=== PATIENT | male | born 1955 | race African-American/Black ===

== ENCOUNTER 2018-04-02 10:33 | Inpatient (IN) | payer OTHER ==
[2018-04-02 11:13] VITALS: BMI 18.1
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
[2018-04-02] MEDS ORDERED: ACETAMINOPHEN 325 MG TABLET (FP) PO PRN (14:44)
[2018-04-02] MEDS ORDERED: guaiFENesin/D-METHORPHAN HB 10 ML UNIT-DOSE CUPS PO PRN (14:44)
[2018-04-02] MEDS ORDERED: hydrOXYzine PAMOATE 50 MG CAPSULE (FP) PO PRN (14:44)
[2018-04-02] MEDS ORDERED: MENTHOL/PHENOL 1 EACH UD MM PRN (14:44)
[2018-04-02] MEDS ORDERED: MAGNESIUM HYDROX 2400MG/30ML ORAL SUSPENSION 30 ML CUP PO PRN (14:44)
[2018-04-02] MEDS ORDERED: LOPERAMIDE HCL 2 MG CAPSULE PO PRN (14:44)
[2018-04-02] MEDS ORDERED: MAGNESIUM CITRATE 300 ML BOTTLE PO PRN (14:44)
[2018-04-02] MEDS ORDERED: P-EPHED 60MG/TRIPROLIDI 2.5MG TABLET PO PRN (14:44)
[2018-04-02] MEDS ORDERED: IBUPROFEN 400 MG TABLET (FP) PO PRN (14:44)
[2018-04-02] MEDS ORDERED: chlordiazePOXIDE HCL 25 MG CAPSULE PO PRN (14:44)
[2018-04-02] MEDS ORDERED: MAG HYDROX/AL HYDROX/SIMETH 30 ML UNIT-DOSE CUP PO PRN (14:44)
[2018-04-02] MEDS: chlordiazePOXIDE HCL 25 MG CAPSULE PO SCH ×2 (17:40→22:07)
[2018-04-02 19:05] LABS: URINE APPEARANCE SLCLOUDY; URINE COLOR AMBER; URINE GLUCOSE (UA) NEGATIVE (NEGATIVE); URINE KETONE NEGATIVE (NEGATIVE); URINE LEUK ESTERASE TRACE (NEGATIVE); URINE NITRITE NEGATIVE (NEGATIVE); URINE UROBILINOGEN 4.0 E.U/dl mg/dL (0.2-1.0)
[2018-04-02 19:11] LABS: URINE PROTEIN 2+ (NEGATIVE)
[2018-04-02 19:16] LABS: EPI CELLS FEW /HPF (FEW); URINE HYALINE CAST 139 /lpf; URINE MUCUS RARE
[2018-04-02] MEDS: THIAMINE HCL 100 MG TABLET (FP) PO SCH (22:07)
[2018-04-02] MEDS: MELATONIN 5 MG TABLETS PO PRN (22:07)
[2018-04-03] MEDS ORDERED: METHADONE HCL 5 MG TABLET ONE (04:25)
[2018-04-03] MEDS ORDERED: METHADONE HCL 40 MG DISPERSABLE TABLET ONE (04:25)
[2018-04-03] MEDS ORDERED: METHADONE HCL 10 MG TABLET ONE (04:25)
[2018-04-03] MEDS: chlordiazePOXIDE HCL 25 MG CAPSULE PO SCH ×4 (05:05→22:21)
[2018-04-03] MEDS: METHADONE 40 MG, METHADONE 10 MG, METHADONE 5 MG PO SCH (05:06)
[2018-04-03] MEDS ORDERED: METHADONE HCL 40 MG DISPERSABLE TABLET PO SCH (06:00)
[2018-04-03 09:56] LABS: HEMATOCRIT 39.6 % (35.4-49); HEMOGLOBIN 13.2 GM/dL (11.7-16.9); MCH 32.7 pg (25.7-33.7); MCHC 33.3 g/dl (32.0-35.9); MEAN CELL VOLUME 98.2 fl (80-96); MEAN PLT VOLUME 8.2 fl (7.5-11.1); PLATELET COUNT 140 K/MM3 (134-434); RBC 4.03 M/mm3 (4.00-5.60); RDW 15.3 % (11.9-15.9); WHITE BLOOD COUNT 6.3 K/mm3 (4.0-10.0)
[2018-04-03] MEDS ORDERED: LISINOPRIL 20 MG PO SCH (10:00)
[2018-04-03] MEDS ORDERED: PATIENT'S OWN MEDICATION (NON-FORMULARY) (Aspirin 81 MG) PO SCH (10:00)
[2018-04-03 10:24] LABS: CHLORIDE 99 mmol/L (98-107); POTASSIUM 4.2 mmol/L (3.5-5.1); SODIUM 139 mmol/L (136-145)
[2018-04-03] MEDS: LISINOPRIL 20 MG TABLET (FP) PO SCH (10:24)
[2018-04-03] MEDS: ASPIRIN COATED 81 MG TABLET.EC PO SCH (10:24)
[2018-04-03] MEDS: PRENATAL VITAMINS W/ FOLIC ACID TABLET (FP) PO SCH (10:24)
[2018-04-03 10:50] LABS: ALK PHOS 123 U/L (45-117); ANION GAP 7 MMOL/L (8-16); BILIRUBIN,TOTAL 0.8 mg/dL (0.2-1.0); BLOOD UREA NITROGEN 17 mg/dL (7-18); CALCIUM 8.8 mg/dL (8.5-10.1); CO2 33 mmol/L (21-32); GLUCOSE,RANDOM 108 mg/dL (74-106); SGOT/AST 36 U/L (15-37); SGPT/ALT 25 U/L (12-78); TOT PROT 8.6 g/dl (6.4-8.2)
--- NOTE | 2018-04-03 17:17 | PN ---
S CIWA - CIWA Score Nausea/Vomitin Muscle Tremors: 3 Anxiety: 2 Agitation: 2 Paroxysmal Sweats: 2 Orientation: 0-Oriented Tacttile Disturbances: 0-None Auditory Disturbances: 0-None Visual Disturbances: 0-None Headache: 2-Mild CIWA-Ar Total Score: 13 BHS Progress Note (SOAP) Subjective: pt states he feels like he is in withdrawal- just received librium,and tylenol Obj: high COWS score, Vital Signs - 24 hr 04/02/18 04/03/18 04/03/18 21:03 00:30 03:30 Temperature 97.2 F L Pulse Rate 61 Respiratory 16 18 18 Rate Blood Pressure 149/69 04/03/18 04/03/18 04/03/18 06:18 11:17 14:37 Temperature 97.9 F 97.9 F 96.6 F L Pulse Rate 59 L 67 66 Respiratory 16 18 18 Rate Blood Pressure 124/71 119/73 118/70 Laboratory Tests 04/02/18 04/03/18 04/03/18 18:30 06:00 06:00 WBC 6.3 RBC 4.03 Hgb 13.2 Hct 39.6 MCV 98.2 H MCH 32.7 MCHC 33.3 RDW 15.3 Plt Count 140 MPV 8.2 Sodium 139 Potassium 4.2 Chloride 99 Carbon Dioxide 33 H Anion Gap 7 L BUN 17 Creatinine 2.0 H Creat Clearance w eGFR 33.91 Random Glucose 108 H Calcium 8.8 Total Bilirubin 0.8 AST 36 ALT 25 Alkaline Phosphatase 123 H Total Protein 8.6 H Albumin 4.0 Urine Color [place] Urine Appearance Slcloudy Urine pH 5.0 Ur Specific [place] 1.027 Urine Protein 2+ H Urine Glucose (UA) Negative Urine Ketones Negative Urine Blood Negative Urine Nitrite Negative Urine Bilirubin 2.0 Urine Urobilinogen 4.0 e.u/dl Ur Leukocyte Esterase Trace Urine WBC (Auto) 2 Urine RBC (Auto) <1 Ur Epithelial Cells Few Hyaline Casts 139 Urine Mucus Rare RPR Titer 04/03/18 06:00 WBC RBC Hgb Hct MCV MCH MCHC RDW Plt Count MPV Sodium Potassium Chloride Carbon Dioxide Anion Gap BUN Creatinine Creat Clearance w eGFR Random Glucose Calcium Total Bilirubin AST ALT Alkaline Phosphatase Total Protein Albumin Urine Color Urine Appearance Urine pH Ur Specific [place] Urine Protein Urine Glucose (UA) Urine Ketones Urine Blood Urine Nitrite Urine Bilirubin Urine Urobilinogen Ur Leukocyte Esterase Urine WBC (Auto) Urine RBC (Auto) Ur Epithelial Cells Hyaline Casts Urine Mucus RPR Titer Nonreactive increased Cr, low GFR Ass/Plan: pt here for alcohol withdrawal Rx- on librium for alcohol detox, pt has prn librium as needed
[2018-04-03] MEDS: THIAMINE HCL 100 MG TABLET (FP) PO SCH (22:21)
[2018-04-04] MEDS ORDERED: METHADONE HCL 5 MG TABLET ONE (04:53)
[2018-04-04] MEDS ORDERED: METHADONE HCL 40 MG DISPERSABLE TABLET ONE (04:53)
[2018-04-04] MEDS ORDERED: METHADONE HCL 10 MG TABLET ONE (04:53)
[2018-04-04] MEDS: METHADONE 40 MG, METHADONE 10 MG, METHADONE 5 MG PO SCH (05:16)
[2018-04-04] MEDS: chlordiazePOXIDE HCL 25 MG CAPSULE PO SCH ×2 (05:16→10:06)
[2018-04-04] MEDS: PRENATAL VITAMINS W/ FOLIC ACID TABLET (FP) PO SCH (10:06)
[2018-04-04] MEDS: LISINOPRIL 20 MG TABLET (FP) PO SCH (10:07)
[2018-04-04] MEDS: ASPIRIN COATED 81 MG TABLET.EC PO SCH (10:07)
--- NOTE | 2018-04-04 10:39 | PN ---
S CIWA - CIWA Score Nausea/Vomitin-Mild Nausea/No Vomiting Muscle Tremors: 2 Anxiety: 2 Agitation: 2 Paroxysmal Sweats: 1-Minimal Palms Moist Orientation: 0-Oriented Tacttile Disturbances: 0-None Auditory Disturbances: 0-None Visual Disturbances: 0-None Headache: 2-Mild CIWA-Ar Total Score: 10 S Progress Note (SOAP) Subjective: pt states he has trouble falling asleep, would like brace for knee- used to have one to stabilize it- O: Vital Signs - 24 hr 04/03/18 04/03/18 04/03/18 11:17 14:37 18:58 Temperature 97.9 F 96.6 F L 101.2 F H Pulse Rate 67 66 71 Respiratory 18 18 18 Rate Blood Pressure 119/73 118/70 121/79 04/03/18 04/04/18 04/04/18 22:29 00:30 03:30 Temperature 100.5 F H Pulse Rate 80 Respiratory 18 18 18 Rate Blood Pressure 108/62 04/04/18 06:01 Temperature 98.6 F Pulse Rate 65 Respiratory 16 Rate Blood Pressure 103/64 Laboratory Tests 04/02/18 04/03/18 04/03/18 18:30 06:00 06:00 WBC 6.3 RBC 4.03 Hgb 13.2 Hct 39.6 MCV 98.2 H MCH 32.7 MCHC 33.3 RDW 15.3 Plt Count 140 MPV 8.2 Sodium 139 Potassium 4.2 Chloride 99 Carbon Dioxide 33 H Anion Gap 7 L BUN 17 Creatinine 2.0 H Creat Clearance w eGFR 33.91 Random Glucose 108 H Calcium 8.8 Total Bilirubin 0.8 AST 36 ALT 25 Alkaline Phosphatase 123 H Total Protein 8.6 H Albumin 4.0 Urine Color [place] Urine Appearance Slcloudy Urine pH 5.0 Ur Specific [place] 1.027 Urine Protein 2+ H Urine Glucose (UA) Negative Urine Ketones Negative Urine Blood Negative Urine Nitrite Negative Urine Bilirubin 2.0 Urine Urobilinogen 4.0 e.u/dl Ur Leukocyte Esterase Trace Urine WBC (Auto) 2 Urine RBC (Auto) <1 Ur Epithelial Cells Few Hyaline Casts 139 Urine Mucus Rare RPR Titer 04/03/18 06:00 WBC RBC Hgb Hct MCV MCH MCHC RDW Plt Count MPV Sodium Potassium Chloride Carbon Dioxide Anion Gap BUN Creatinine Creat Clearance w eGFR Random Glucose Calcium Total Bilirubin AST ALT Alkaline Phosphatase Total Protein Albumin Urine Color Urine Appearance Urine pH Ur Specific [place] Urine Protein Urine Glucose (UA) Urine Ketones Urine Blood Urine Nitrite Urine Bilirubin Urine Urobilinogen Ur Leukocyte Esterase Urine WBC (Auto) Urine RBC (Auto) Ur Epithelial Cells Hyaline Casts Urine Mucus RPR Titer Nonreactive increased Cr, a/p: continue alcohol detox, on MMTP will order knee brace
[2018-04-04] MEDS: chlordiazePOXIDE 5 MG CAPSULE PO SCH ×2 (17:38→22:15)
[2018-04-04] MEDS: THIAMINE HCL 100 MG TABLET (FP) PO SCH (22:14)
[2018-04-04] MEDS: MELATONIN 5 MG TABLETS PO PRN (22:16)
[2018-04-05] MEDS ORDERED: METHADONE HCL 10 MG TABLET ONE (03:27)
[2018-04-05] MEDS ORDERED: METHADONE HCL 40 MG DISPERSABLE TABLET ONE (03:28)
[2018-04-05] MEDS ORDERED: METHADONE HCL 5 MG TABLET ONE (03:28)
[2018-04-05] MEDS: METHADONE 40 MG, METHADONE 10 MG, METHADONE 5 MG PO SCH (05:42)
[2018-04-05] MEDS: chlordiazePOXIDE 5 MG CAPSULE PO SCH ×2 (05:42→10:03)
[2018-04-05] MEDS: PRENATAL VITAMINS W/ FOLIC ACID TABLET (FP) PO SCH (10:02)
[2018-04-05] MEDS: ASPIRIN COATED 81 MG TABLET.EC PO SCH (10:03)
[2018-04-05] MEDS: LISINOPRIL 20 MG TABLET (FP) PO SCH (10:03)
--- NOTE | 2018-04-05 10:33 | PN ---
BHS Progress Note (SOAP) Subjective: ANXIETY,IRRITABILITY,SWEATS, CHRONIC RIGHT KNEE PAIN/SWELLING/DIFFICULTY DURING WALKING-CANE FOR AMBULATION. Objective: 04/05/18 10:30 Vital Signs 04/05/18 04/05/18 04/05/18 03:30 06:02 06:30 Temperature 98 F Pulse Rate 59 L Respiratory 18 16 18 Rate Blood Pressure 93/61 04/05/18 09:06 Temperature 98.6 F Pulse Rate 64 Respiratory 18 Rate Blood Pressure 104/62 Laboratory Tests 04/02/18 04/03/18 04/03/18 18:30 06:00 06:00 WBC 6.3 RBC 4.03 Hgb 13.2 Hct 39.6 MCV 98.2 H MCH 32.7 MCHC 33.3 RDW 15.3 Plt Count 140 MPV 8.2 Sodium 139 Potassium 4.2 Chloride 99 Carbon Dioxide 33 H Anion Gap 7 L BUN 17 Creatinine 2.0 H Creat Clearance w eGFR 33.91 Random Glucose 108 H Calcium 8.8 Total Bilirubin 0.8 AST 36 ALT 25 Alkaline Phosphatase 123 H Total Protein 8.6 H Albumin 4.0 Urine Color [place] Urine Appearance Slcloudy Urine pH 5.0 Ur Specific [place] 1.027 Urine Protein 2+ H Urine Glucose (UA) Negative Urine Ketones Negative Urine Blood Negative Urine Nitrite Negative Urine Bilirubin 2.0 Urine Urobilinogen 4.0 e.u/dl Ur Leukocyte Esterase Trace Urine WBC (Auto) 2 Urine RBC (Auto) <1 Ur Epithelial Cells Few Hyaline Casts 139 Urine Mucus Rare RPR Titer 04/03/18 06:00 WBC RBC Hgb Hct MCV MCH MCHC RDW Plt Count MPV Sodium Potassium Chloride Carbon Dioxide Anion Gap BUN Creatinine Creat Clearance w eGFR Random Glucose Calcium Total Bilirubin AST ALT Alkaline Phosphatase Total Protein Albumin Urine Color Urine Appearance Urine pH Ur Specific [place] Urine Protein Urine Glucose (UA) Urine Ketones Urine Blood Urine Nitrite Urine Bilirubin Urine Urobilinogen Ur Leukocyte Esterase Urine WBC (Auto) Urine RBC (Auto) Ur Epithelial Cells Hyaline Casts Urine Mucus RPR Titer Nonreactive Assessment: 04/05/18 10:31 WITHDRAWAL SX Plan: CONTINUE DETOX PAUL BANDAGE BRACE TO RIGHT KNEE PRN
--- NOTE | 2018-04-05 14:23 | EKG ---
Test Reason : Blood Pressure : / mmHG Vent. Rate : 053 BPM Atrial Rate : 053 BPM P-R Int : 152 ms QRS Dur : 080 ms QT Int : 464 ms P-R-T Axes : 083 024 058 degrees QTc Int : 435 ms POOR DATA QUALITY, INTERPRETATION MAY BE ADVERSELY AFFECTED SINUS BRADYCARDIA MODERATE VOLTAGE CRITERIA FOR LVH, MAY BE NORMAL VARIANT CANNOT RULE OUT SEPTAL INFARCT , AGE UNDETERMINED ABNORMAL ECG NO PREVIOUS ECGS AVAILABLE Confirmed by TERESA YA MD ([id number]) on 04/05/2018 2:22:38 PM Referred By: Confirmed By:TERESA YA MD
[2018-04-05] MEDS: chlordiazePOXIDE HCL 10 MG CAPSULE PO SCH ×2 (18:00→22:15)
[2018-04-05] MEDS: THIAMINE HCL 100 MG TABLET (FP) PO SCH (22:15)
[2018-04-05] MEDS: MELATONIN 5 MG TABLETS PO PRN (22:15)
[2018-04-06] MEDS ORDERED: METHADONE HCL 5 MG TABLET ONE (04:51)
[2018-04-06] MEDS ORDERED: METHADONE HCL 10 MG TABLET ONE (04:51)
[2018-04-06] MEDS ORDERED: METHADONE HCL 40 MG DISPERSABLE TABLET ONE (04:52)
[2018-04-06] MEDS: chlordiazePOXIDE HCL 10 MG CAPSULE PO SCH (05:10)
[2018-04-06] MEDS: METHADONE 40 MG, METHADONE 10 MG, METHADONE 5 MG PO SCH (05:10)
[2018-04-06 05:54] VITALS: BP 106/66; PULSE 63; TEMP 98
--- NOTE | 2018-04-06 10:49 | PN ---
BHS Progress Note (SOAP) Subjective: DETOX COMPLETED. ALERT O X 3. NAD. PT HAS PRIMARY CARE AT [facility] [place], [facility] BY [facility]. Objective: 04/06/18 10:46 Vital Signs 04/06/18 04/06/18 04/06/18 03:30 05:53 06:30 Temperature 98.0 F Pulse Rate 63 Respiratory 18 18 18 Rate Blood Pressure 106/66 Laboratory Tests 04/02/18 04/03/18 04/03/18 18:30 06:00 06:00 WBC 6.3 RBC 4.03 Hgb 13.2 Hct 39.6 MCV 98.2 H MCH 32.7 MCHC 33.3 RDW 15.3 Plt Count 140 MPV 8.2 Sodium 139 Potassium 4.2 Chloride 99 Carbon Dioxide 33 H Anion Gap 7 L BUN 17 Creatinine 2.0 H Creat Clearance w eGFR 33.91 Random Glucose 108 H Calcium 8.8 Total Bilirubin 0.8 AST 36 ALT 25 Alkaline Phosphatase 123 H Total Protein 8.6 H Albumin 4.0 Urine Color [place] Urine Appearance Slcloudy Urine pH 5.0 Ur Specific [place] 1.027 Urine Protein 2+ H Urine Glucose (UA) Negative Urine Ketones Negative Urine Blood Negative Urine Nitrite Negative Urine Bilirubin 2.0 Urine Urobilinogen 4.0 e.u/dl Ur Leukocyte Esterase Trace Urine WBC (Auto) 2 Urine RBC (Auto) <1 Ur Epithelial Cells Few Hyaline Casts 139 Urine Mucus Rare RPR Titer 04/03/18 06:00 WBC RBC Hgb Hct MCV MCH MCHC RDW Plt Count MPV Sodium Potassium Chloride Carbon Dioxide Anion Gap BUN Creatinine Creat Clearance w eGFR Random Glucose Calcium Total Bilirubin AST ALT Alkaline Phosphatase Total Protein Albumin Urine Color Urine Appearance Urine pH Ur Specific [place] Urine Protein Urine Glucose (UA) Urine Ketones Urine Blood Urine Nitrite Urine Bilirubin Urine Urobilinogen Ur Leukocyte Esterase Urine WBC (Auto) Urine RBC (Auto) Ur Epithelial Cells Hyaline Casts Urine Mucus RPR Titer Nonreactive Assessment: 04/06/18 10:47 MEDICALLY STABLE Plan: D/C PT TODAY
--- NOTE | 2018-04-06 10:55 | DS ---
[facility] Detox Discharge Summary Admission Date: 04/02/18 Discharge Date: 04/06/18 - History Present History: Alcohol Dependence Additional Comments: DETOX COMPLETED. ALERT O X 3. NAD. FOLLOW UP WITH YOUR PRIMARY CARE AT [facility] IN [place], [place] FOR MEDICAL MANAGEMENT. Pertinent Past History: PLEASE SEE DX BELOW - Physical Exam Results Vital Signs: Vital Signs Temperature 98.0 F 04/06/18 05:53 Pulse Rate 63 04/06/18 05:53 Respiratory Rate 18 04/06/18 06:30 Blood Pressure 106/66 04/06/18 05:53 O2 Sat by Pulse Oximetry (%) Pertinent Admission Physical Exam Findings: WITHDRAWAL SX Laboratory Tests 04/02/18 04/03/18 04/03/18 18:30 06:00 06:00 WBC 6.3 RBC 4.03 Hgb 13.2 Hct 39.6 MCV 98.2 H MCH 32.7 MCHC 33.3 RDW 15.3 Plt Count 140 MPV 8.2 Sodium 139 Potassium 4.2 Chloride 99 Carbon Dioxide 33 H Anion Gap 7 L BUN 17 Creatinine 2.0 H Creat Clearance w eGFR 33.91 Random Glucose 108 H Calcium 8.8 Total Bilirubin 0.8 AST 36 ALT 25 Alkaline Phosphatase 123 H Total Protein 8.6 H Albumin 4.0 Urine Color [place] Urine Appearance Slcloudy Urine pH 5.0 Ur Specific [place] 1.027 Urine Protein 2+ H Urine Glucose (UA) Negative Urine Ketones Negative Urine Blood Negative Urine Nitrite Negative Urine Bilirubin 2.0 Urine Urobilinogen 4.0 e.u/dl Ur Leukocyte Esterase Trace Urine WBC (Auto) 2 Urine RBC (Auto) <1 Ur Epithelial Cells Few Hyaline Casts 139 Urine Mucus Rare RPR Titer 04/03/18 06:00 WBC RBC Hgb Hct MCV MCH MCHC RDW Plt Count MPV Sodium Potassium Chloride Carbon Dioxide Anion Gap BUN Creatinine Creat Clearance w eGFR Random Glucose Calcium Total Bilirubin AST ALT Alkaline Phosphatase Total Protein Albumin Urine Color Urine Appearance Urine pH Ur Specific [place] Urine Protein Urine Glucose (UA) Urine Ketones Urine Blood Urine Nitrite Urine Bilirubin Urine Urobilinogen Ur Leukocyte Esterase Urine WBC (Auto) Urine RBC (Auto) Ur Epithelial Cells Hyaline Casts Urine Mucus RPR Titer Nonreactive - Treatment Hospital Course: Detox Protocol Followed, Detoxed Safely, Responded well, Discharged Condition Good - Medication Discharge Medications: Ambulatory Orders Aspirin 81 mg PO DAILY 04/02/18 Lisinopril 20 mg PO DAILY 04/02/18 - Diagnosis (1) Alcohol dependence with uncomplicated withdrawal Status: Acute (2) Essential hypertension Status: Chronic (3) H/O right knee surgery Status: Chronic (4) Methadone maintenance therapy patient Status: Chronic (5) Nicotine dependence Status: Acute Qualifiers: Nicotine product type: cigarettes Substance use status: in withdrawal Qualified Code(s): F17.213 - Nicotine dependence, cigarettes, with withdrawal (6) Use of cane as ambulatory aid Status: Chronic (7) Weight loss Status: Acute - AMA Did Patient Leave Against Medical Advice: No
== END 2018-04-06 09:39 | disposition home or self-care (01) | DRG 773 ==
LOC: YASAS 10:33 → Y3N 14:58
PROC: HZ2ZZZZ Detoxification Services for Substance Abuse Treatment (ICD-10-PCS; principal; 2018-04-02)
DX: F10.230 Alcohol dependence with withdrawal, uncomplicated (principal); F11.120 Opioid abuse with intoxication, uncomplicated; F17.213 Nicotine dependence, cigarettes, with withdrawal; I10 Essential (primary) hypertension; R76.11 Nonspecific reaction to tuberculin skin test without active tuberculosis; R63.4 Abnormal weight loss; Z68.1 Body mass index [BMI] 19.9 or less, adult; R26.89 Other abnormalities of gait and mobility; Z99.89 Dependence on other enabling machines and devices
CPT/HCPCS: 36415; 80053; 81003; 81015; 85027; 86593; 93005; 93010